=== PATIENT | female | born 2005 | race Caucasian/White ===

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

== ENCOUNTER 2025-06-17 22:38 | Emergency (ER) | payer OTHER, SELFPAY ==
--- OUTSIDE RECORDS SUMMARY | 2025-06-17 22:40 | XMS_ITS | Clinical Summary ---
Author Organization [facility] Address [address] [place] [address] Care Team Providers Care Meatman Name Role Phone Katy Goyal Primary Care Provider Source Comments [facility],non-owned Affiliates and Associated Physician Practices is amultiple site organization consisting of ambulatory clinics and hospital sitesin [place], [place], [place] and [place]. This disclosure is being madepursuant to the Care Everywhere program and may not contain all information available regarding this patient. Last updated 18.[facility] Allergies No known active allergies Medications * Be aware that medications may not be up to date on this document. Alwaysverify current medications with the patient. No known medications Social History Tobacco Use Types Packs/Day Years Used Date Smoking Tobacco: Never Assessed Tobacco Cessation:Counseling Given: Not Answered Comments Unknown Sex and Gender Information Value Date Recorded Sex Assigned at Not on file Legal Sex Female 5:45 AM COMMUNITY SERVICE SPECIALIST Gender Identity Not on file Sexual Orientation Not on file Last Filed Vital Signs Vital Sign Reading Time Taken Comments Blood Pressure - - Pulse - - Temperature - - Respiratory Rate - - Oxygen Saturation - - Inhaled Oxygen Concentration - - Weight 56.5 kg (124 lb 9 oz) 05/22/2022 8:07 AM COMMUNITY SERVICE SPECIALIST Height 168.5 cm (5' 6.34) 05/22/2022 8:07 AM CS T Body Mass Index 19.9 05/22/2022 8:07 AM COMMUNITY SERVICE SPECIALIST Body Mass Index Percentile 36.92% 05/22/2022 8:0 7 AM COMMUNITY SERVICE SPECIALIST Growth Chart: CDC (Girls, 2- 20 Years) Plan of Treatment Health Maintenance Due Date Last Done Comments HIV SCREENING 2020 HPV VACCINE (1 - 3-dose series) 2020 CHLAMYDIA/GONORRHEA SCREENING 2021 MENINGOCOCCAL (Group B) VACC INE SHARED DECISION-MAKING (1 of 2 - Standard) 2021 HEPATITIS C SCREENING 06/16/2023 DTAP/TDAP/TD VACCINES (1 - Tdap) 2024 HEPATITIS B VACCINE (1 of 3 - 19+ 3-dose series) 2024 DEPRESSION SCREENING 07/02/2024 COVID-19 VACCINE (1 - 2024-2 6 season) 2025 INFLUENZA VACCINE (#1) 2025 ZOSTER VACCINE (1 of 2) 2055 HIB VACCINE Aged Out No longer eligi ble based on patient's age to complete this topic MENINGOCOCCAL GROUPS A/C/Y/W VACCINE Aged Out No longer eligible b ased on patient's age to complete this topic PNEUMOCOCCAL VACCINE Aged Out No long er eligible based on patient's age to complete this topic Insurance AETNA Care Teams Meatman Relationship Specialty Start Date End Date Katy Goyal PA [address] [place] [address] [id number] PCP - General Physician Spoilage Worker 05/22/22
[2025-06-17 22:44] VITALS: BP 123/64; PULSE 106; RESP 16; TEMP 37.2; O2SAT 100
[2025-06-17 23:38] LABS: Hematocrit 39.3 % (37.0-47.0); Hemoglobin 13.5 g/dL (12.0-15.0); Immature Granulocyte Percent A 0.1 % (0-0.5); Lymphocytes Absolute Auto 2.65 K/mm3 (0.9-3.2); Mean Corpuscular HGB Conc 34.4 g/dl (32-36); Mean Corpuscular Hemoglobin 30.3 pg (26-34); Mean Corpuscular Volume 88.1 fl (80-100); Nucleated Red Blood Cells Absolute Auto 0.000 K/mm3 (0.0-0.012); Nucleated Red Blood Cells Perc 0.0 % (0.0-0.2); Platelet Count Result 224 k/mm3 (150-375); Red Blood Count 4.46 M/mm3 (4.2-5.4); White Blood Count 7.0 K/mm3 (4.5-10.0)
[2025-06-17 23:50] LABS: Alanine Aminotransferase 20 U/L (6-35); Albumin Level 4.8 g/dL (3.7-5.6); Alkaline Phosphatase 63 U/L (45-116); Anion Gap 9 mmol/L (4-12); Aspartate Amino Transferase 28 U/L (14-36); Bilirubin,Total 0.4 mg/dL (0.2-1.3); Blood Urea Nitrogen 15 mg/dL (8-21); Calcium 9.4 mg/dL (8.9-10.7); Carbon Dioxide 24 mmol/L (22-30); Chloride 106 mmol/L (98-107); Estimated CRCL calculation 87 ml/min; Estimated Glomerular Filt Rate > 60; Glucose 95 mg/dL (65-110); Lipase 72 U/L (23-300); Potassium 4.2 mmol/L (3.4-5.0); Sodium 139 mmol/L (134-143); Total Protein 7.8 g/dL (6.3-8.6)
[2025-06-17 23:59] LABS: Add Urine Microscopic? YES; Appearance Urine Clear (Clear); Glucose Urine UA Negative (Negative); Leukocyte Esterase Ur 2+ LEU/UL (Negative); Need Manual Microscopic Reviewed; Nitrate Urine Negative (Negative); Non Pathogenic Casts 0-2; Specific Grav Ur 1.010 (1.001-1.035)
[2025-06-18 00:01] LABS: BEDSIDEPREGUCG Negative (Negative)
--- NOTE | 2025-06-18 00:31 | ED.ABDPAIN ---
HPI - Abdominal Pain General Chief Complaint: Abdominal Pain Stated Complaint: sharp abdominal pain Time Seen by Provider: 06/18/25 00:19 History of Present Illness HPI narrative: 19-year-old otherwise healthy female presenting to the emergency department with periumbilical pain. She has had intermittent pain worse with specific movements and positions. She thinks she pulled a muscle in her abdomen. 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 Has not tried any medications at home. She had an episode diarrhea at home but attributed this to the azithromycin she was put on for a recent stye. Denies any nausea, vomiting, diarrhea at this time. No fever, chills, traumatic injuries. No chest pain difficulty breathing. No back pain. She actually feels better now and no longer having any significant pain. Denies any other complaints at this time. Related Data Allergies Allergy/AdvReac Type Severity Reaction Status Date / Time No Known Allergies Allergy Verified 06/17/25 22:50 Review of Systems Review of Systems: As reviewed above in HPI All systems reviewed & are unremarkable except as noted in HPI and below PMFSH Past Medical History Medical History Pelvic pain Nausea and vomiting Abdominal pain Social History Social History Smoking status: Never smoker Alcohol intake: never Substance use: never Living arrangements: with family Occupation/Education: student Additional occupation/education comments: [employer] Gender identity (if verbalized by the patient): Female Agree to blood products: Yes Exam Narrative: GENERAL: [Well-appearing, well-nourished, and in no acute distress.] HEAD: [Normocephalic, atraumatic.] EYES: [PERRLA and EOMI.] ENT: Nares clear, no rhinorrhea or epistaxis. Mucous membranes moist. NECK: Supple. CHEST: [Clear to auscultation. No respiratory distress.] HEART: [Regular rate and rhythm]. No murmur heard. [Normal peripheral pulses.] ABDOMEN: [Soft, nondistended], [nontender], [No rigidity or guarding] EXTREMITIES: Normal range of motion. [No edema.] SKIN: Warm, dry, no rash. NEURO: [No focal deficits]. Alert and oriented [x3.] PSYCH: [Normal mood and affect.] Course Vital Signs Vital signs: Vital Signs Temperature 37.2 C 06/17/25 22:44 Pulse Rate 106 H 06/17/25 22:44 Respiratory Rate 16 06/17/25 22:44 Blood Pressure 123/64 06/17/25 22:44 Pulse Oximetry 100 06/17/25 22:44 Oxygen Delivery Room Air 06/17/25 22:44 Temperature 37.2 C 06/17/25 22:44 Pulse Rate 82 06/18/25 00:47 Respiratory Rate 18 06/18/25 00:47 Blood Pressure 132/74 06/18/25 00:47 Pulse Oximetry 100 06/18/25 00:47 Oxygen Delivery Room Air 06/17/25 22:44 MDM MDM Narrative Medical decision making narrative: 19-year-old otherwise healthy female presenting to the emergency department with periumbilical pain. She has had intermittent pain worse with specific movements and positions. She thinks she pulled a muscle in her abdomen. 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 Has not tried any medications at home. She had an episode diarrhea at home but attributed this to the azithromycin she was put on for a recent stye. Denies any nausea, vomiting, diarrhea at this time. No fever, chills, traumatic injuries. No chest pain difficulty breathing. No back pain. She actually feels better now and no longer having any significant pain. Denies any other complaints at this time. Patient has a reassuring physical examination, unremarkable vital signs. No fever. She has improved symptoms without any interventions and no longer symptomatic. Likely muscle spasm versus abdominal wall strain given the historical features with positional changes exacerbating her anterior muscles in the abdomen. Low suspicion intra-abdominal process such as appendicitis, pancreatitis, cholecystitis. Laboratory studies were obtained as well as urinalysis. test negative, laboratory studies are all normal in reassuring. Safe for discharge home at this time with strict return precautions. Patient and family verbalized understanding the instructions and were discharged. Differential Diagnosis Differential Diagnosis: Likely muscle spasm versus abdominal wall strain given the historical features with positional changes exacerbating her anterior muscles in the abdomen. Low suspicion intra-abdominal process such as appendicitis, pancreatitis, cholecystitis. Lab Data 06/17/25 23:30 06/17/25 23:30 Labs: Lab Results 06/17/25 06/17/25 Range/Units 23:30 23:37 WBC 7.0 (4.5-10.0) K/mm3 RBC 4.46 (4.2-5.4) M/mm3 Hgb 13.5 (12.0-15.0) g/dL Hct 39.3 (37.0-47.0) % MCV 88.1 (80-100) fl MCH 30.3 (26-34) pg MCHC 34.4 (32-36) g/dl RDW 12.0 (11.5-14.5) % Plt Count 224 (150-375) k/mm3 MPV 10.5 H (7.4-10.4) fl Immature Gran % (Auto) 0.1 (0-0.5) % Neut % (Auto) 49.6 (45.5-73.1) % Lymph % (Auto) 38.1 (18.3-44.2) % [place] % (Auto) 9.4 H (2.6-8.5) % Eos % (Auto) 2.2 (0-4.4) % Baso % (Auto) 0.6 (0.2-1.2) % Lymph # (Auto) 2.65 (0.9-3.2) K/mm3 [place] # (Auto) 0.7 H (0.1-0.6) K/mm3 Eos # (Auto) 0.2 (0-0.3) K/mm3 Baso # (Auto) 0.0 (0.0-0.1) K/mm3 Abs Immat Gran (auto) 0.01 (0.00-0.031) K/mm3 Absolute Neuts (auto) 3.5 (1.3-6.7) K/mm3 Absolute Nucleated RBC 0.000 (0.0-0.012) K/mm3 Nucleated RBC % 0.0 (0.0-0.2) % Sodium 139 (134-143) mmol/L Potassium 4.2 (3.4-5.0) mmol/L Chloride 106 (98-107) mmol/L Carbon Dioxide 24 (22-30) mmol/L Anion Gap 9 (4-12) mmol/L BUN 15 (8-21) mg/dL Creatinine 0.77 (0.7-1.0) mg/dL Estim Creat Clear Calc 87 ml/min Estimated GFR > 60 (59 - ) Glucose 95 (65-110) mg/dL Calcium 9.4 (8.9-10.7) mg/dL Total Bilirubin 0.4 (0.2-1.3) mg/dL AST 28 (14-36) U/L ALT 20 (6-35) U/L Alkaline Phosphatase 63 (45-116) U/L Total Protein 7.8 (6.3-8.6) g/dL Albumin 4.8 (3.7-5.6) g/dL Lipase 72 (23-300) U/L Urine Color Yellow (Yellow) Urine Appearance Clear (Clear) Urine pH 7.0 (5.0-9.0) Ur Specific [place] 1.010 (1.001-1.035) Urine Protein Negative (Negative) mg/dL Urine Glucose (UA) Negative (Negative) mg/dL Urine Ketones Negative (Negative) mg/dL Ur Blood (Man) Negative (Negative) Urine Nitrate Negative (Negative) Urine Bilirubin Negative (Negative) Urine Urobilinogen 0.2 (<2.0) mg/dL Add Ur Microanalysis Reviewed Leukocyte Esterase Rfl 2+ H (Negative) GWENDOLYN/UL Urine RBC 0-2 (0-2) /hpf Urine WBC 0-5 (0-3) /hpf Ur Squamous Epith Cells None seen (Few) /hpf Urine Bacteria Trace /hpf Urine Casts 0-2 POC Urine HCG, Qual Negative (Negative) Discharge Plan Discharge Clinical Impression: Abdominal pain Qualifiers: Abdominal location: upper abdomen, unspecified Qualified Code(s): R10.10 - Upper abdominal pain, unspecified Patient Disposition: Home Condition: Stable Instructions: Antibiotic Form, Abdominal Pain (ED) Additional Instructions: All of your laboratory studies are normal and reassuring. No signs of inflammation or infection. No signs of organ problems. Urinalysis without any signs of infection or blood. Symptoms sound consistent with a muscle strain versus gas and very unlikely related to anything serious at this time. If you have any worsening or recurrent symptoms however or new development such as nausea, vomiting, inability to tolerate oral intake, intractable fevers or any other concerns please return to the ER at that time otherwise follow-up with regular care providers and take Tylenol/ibuprofen every 6-8 hours for residual symptoms. Continue your other medications as prescribed until completion. Patient Language: Citizen Of [place] Prescriptions: No Action azithromycin 200 mg/5 mL suspension for reconstitution See Rx Instructions PO .COMPLEX Qty: 30 0RF Rx Instructions: take 12.5 mL (500 mg) by mouth today (day 1), then 6.25 mL (250 mg) daily for 4 days (days 2-5) PO ondansetron 8 mg tablet,disintegrating 8 mg PO Q12H PRN (Reason: nausea and vomiting) Qty: 10 0RF Follow-up/Referrals: Katy Goyal PA-C [Primary Care Provider, [facility]] Time of Disposition: 00:30
--- OUTSIDE RECORDS SUMMARY | 2025-06-18 00:35 | XMS_ITS | Clinical Summary ---
Author Organization [facility] Address [address] [place] [address] Care Team Providers Care Sumatra Opener Name Role Phone Katy Goyal Primary Care Provider [phone] Source Comments [facility],non-owned Affiliates and Associated Physician Practices is amultiple site organization consisting of ambulatory clinics and hospital sitesin [place], [place], [place] and [place]. This disclosure is being madepursuant to the Care Everywhere program and may not contain all information available regarding this patient. Last updated 18.[facility] Allergies No known active allergies Medications * [...] on file Legal Sex Female 5:45 AM PARATRANSIT OPERATOR Gender Identity Not on file Sexual Orientation Not on file Last Filed Vital Signs Vital Sign Reading Time Taken Comments Blood Pressure - - Pulse - - Temperature - - Respiratory Rate - - Oxygen Saturation - - Inhaled Oxygen Concentration - - Weight 56.5 kg (124 lb 9 oz) 05/22/2022 8:07 AM PARATRANSIT OPERATOR Height 168.5 cm (5' 6.34) 05/22/2022 8:07 AM CS T Body Mass Index 19.9 05/22/2022 8:07 AM PARATRANSIT OPERATOR Body Mass Index Percentile 36.92% 05/22/2022 8:0 7 AM PARATRANSIT OPERATOR Growth Chart: CDC (Girls, 2- 20 Years) [...] complete this topic Insurance AETNA Care Teams Sumatra Opener Relationship Specialty Start Date End Date Katy Goyal PA [address] [place] [address] [id number] PCP - General Physician Laminator 05/22/22
[2025-06-18 00:47] VITALS: BP 132/74; PULSE 82; RESP 18; O2SAT 100
== END 2025-06-18 00:48 | disposition home or self-care (01) ==
PROVIDERS: Emergency Provider Student in an Organized Health Care Education/Training Program; PCP Physician Assistant Medical
DX: R10.10 Upper abdominal pain, unspecified (principal)
CPT/HCPCS: 36415; 80053; 81001; 81025; 83690; 85025; 87086; 99283